=== PATIENT | male | born 1975 | race Two or more races ===

== ENCOUNTER 2018-09-02 23:38 | Emergency (ER) | payer OTHER ==
[~2018-09-02] VITALS: Ht 170.2 cm; Wt 87.1 kg
[2018-09-03 00:01] VITALS: Ht 170.2 cm; Wt 87.1 kg
[2018-09-03 03:42] VITALS: BP 104/67
== END 2018-09-03 03:42 | disposition home or self-care (01) ==
LOC: ED 23:38
DX: J32.9 Chronic sinusitis, unspecified (principal)
CPT/HCPCS: J1885